=== PATIENT | female | born 1965 | race Caucasian/White ===

== ENCOUNTER 2017-01-14 12:31 | Observation (INO) | payer OTHER ==
[2017-01-14 13:01] LABS: ABSOLUTE LYMPHOCYTES (AUTO) 0.9 10^3/uL (0.5-4.7); ABSOLUTE MONOCYTES (AUTO) 0.2 10^3/uL (0.1-1.4); ABSOLUTE NEUT (AUTO) 5.6 10^3/uL (1.7-8.2); BASOPHILS % (AUTO) 0.3 % (0-2); EOSINOPHILS % (AUTO) 0.7 % (0-6); HEMATOCRIT 43.3 % (36.0-47.0); HEMOGLOBIN 14.4 g/dL (12.0-15.5); HGB HCT DIFFERENCE -0.1; LYMPHOCYTES % (AUTO) 13.4 % (13-45); MEAN CORPUSCULAR HEMOGLOBIN 29.9 pg (27.0-33.4); MEAN CORPUSCULAR HGB CONC 33.2 g/dL (32.0-36.0); MEAN CORPUSCULAR VOLUME 90 fl (80-97); MONOCYTES % (AUTO) 2.4 % (3-13); RED CELL DISTRIBUTION WIDTH 13.7 % (11.5-14.0); SEGMENTED NEUTROPHILS % (AUTO) 83.2 % (42-78); WHITE BLOOD COUNT 6.7 10^3/uL (4.0-10.5)
[2017-01-14 13:11] LABS: PROTHROMBIN TIME 12.9 SEC (11.4-15.4)
[2017-01-14 13:12] LABS: PARTIAL THROMBOPLASTIN TIME 30.8 SEC (23.5-35.8)
[2017-01-14 13:20] LABS: ALANINE AMINOTRANSFERASE 44 U/L (9-52); ALBUMIN 4.5 g/dL (3.5-5.0); ALKALINE PHOSPHATASE 97 U/L (38-126); ANION GAP 13 (5-19); ASPARTATE AMINO TRANSFERASE 31 U/L (14-36); BILIRUBIN,TOTAL 0.7 mg/dL (0.2-1.3); BLOOD UREA NITROGEN 11 mg/dL (7-20); CALCIUM 10.1 mg/dL (8.4-10.2); CARBON DIOXIDE 25 mmol/L (22-30); CHLORIDE 103 mmol/L (98-107); CREATINE KINASE 46 U/L (30-135); CREATININE RESULT 0.58 mg/dL (0.52-1.25); GLUCOSE 160 mg/dL (75-110); POTASSIUM 4.6 mmol/L (3.6-5.0); SODIUM 140.5 mmol/L (137-145); TOTAL PROTEIN 7.4 g/dL (6.3-8.2)
[2017-01-14] MEDS ORDERED: NORMAL SALINE 1000 ML 1,000 ML IV ONE (13:24)
--- NOTE | 2017-01-14 13:29 | ER Document Report ---
ED General - General Chief Complaint: Probable Seizure Stated Complaint: POSSIBLE STROKE Mode of Arrival: Medic Information source: Patient, Relative, Emergency Med Personnel Notes: This is a 51-year-old female with a history of depression and hypertension who presents to the emergency department via EMS after a probable seizure. Patient is alert and conversant upon arrival however most of the history is obtained from her as she is somewhat amnestic of the events. Patient has been states that she was in her normal state of health this morning but laid down for a nap in the late morning. At about 11:30 he was awakened by her abnormal breathing which she describes as a gasping for air. He states that her eyes rolled back in her head and she began drooling and shaking all over and he was unable to get her to respond. This episode lasted 10-15 minutes per the . EMS was called and patient was awake and responsive at the time of their arrival. She was noted to have loss of bladder control during the episode. Of note she has no prior history of seizure. She was treated for bronchitis about 2 weeks ago but for the past week has been feeling well. EMS reports that enroute to the ER, pt had a brief episode of expressive aphasia associated with R facial droop. This lasted only a few minutes, and had completely resolved upon arrival to the ER. - Related Data Allergies/Adverse Reactions: No Known Allergies Allergy (Unverified 01/14/17 14:47) Past Medical History - General Information source: Patient, Relative - Social History Smoking Status: Never Smoker Family History: Reviewed & Not Pertinent - Past Medical History Cardiac Medical History: Reports: Hx Hypertension Psychiatric Medical History: Reports: Hx Depression Past Surgical History: Reports: Hx Cholecystectomy, Hx Gastric Bypass Surgery Review of Systems - Review of Systems Notes: REVIEW OF SYSTEMS: CONSTITUTIONAL : Denies fever, chills, or sweats. Denies recent illness. EENT: Denies eye, ear, throat, or mouth pain or symptoms. Denies nasal or sinus congestion. CARDIOVASCULAR: Denies chest pain. RESPIRATORY: Denies cough, cold, or chest congestion. Denies shortness of breath, difficulty breathing, or wheezing. GASTROINTESTINAL: Denies abdominal pain. Denies nausea, vomiting, or diarrhea. GENITOURINARY: Denies difficulty urinating, painful urination, burning, frequency, or blood in urine. MUSCULOSKELETAL: myaglias now, sore all over after the seizure episode SKIN: Denies rash or skin lesions. HEMATOLOGIC : Denies easy bruising or bleeding. LYMPHATIC: Denies swollen, enlarged glands. NEUROLOGICAL: as per HPI PSYCHIATRIC: Denies anxiety or stress or depression. ALL OTHER SYSTEMS REVIEWED AND NEGATIVE. Physical Exam - Vital signs Vitals: Pulse Ox 95 01/14/17 12:44 - Notes Notes: PHYSICAL EXAMINATION: GENERAL: Obese female, alert and conversant although appears tired and somewhat uncomfortable, cooperative with interview and no acute distress HEAD: Atraumatic, normocephalic. EYES: Pupils equal round and reactive to light, extraocular movements intact, sclera anicteric, conjunctiva are normal. ENT: nares patent, oropharynx clear without exudates. Moist mucous membranes. NECK: Normal range of motion, supple without lymphadenopathy LUNGS: Breath sounds clear to auscultation bilaterally and equal. No wheezes rales or rhonchi. HEART: Regular rate and rhythm without murmurs ABDOMEN: Obese, Soft, nontender, normoactive bowel sounds. No guarding, no rebound. No masses appreciated. EXTREMITIES: Normal range of motion, no pitting or edema. NEUROLOGICAL: Cranial nerves grossly intact. Normal speech. Sensation intact bilateral upper and lower extremities. Motor strength 5/5 and symmetric bilateral upper and lower extremities. Finger to nose intact PSYCH: Normal mood, flat affect. SKIN: Warm, Dry, normal turgor, no rashes or lesions noted. Course - Re-evaluation Re-evalutation: 01/14/17 16:20 Discuss[facility] case [facility] Corrie Dinh. At this point she recommends checking a magnesium level and possible observation with MRI and then refer her to neurology based on the result. 01/14/17 16:[address] Scott for admission - Vital Signs Vital signs: Temp Pulse Resp BP Pulse Ox 98.3 F 60 11 L 135/76 H 98 01/14/17 17:36 01/14/17 15:30 01/14/17 17:01 01/14/17 17:01 01/14/17 17:01 - Laboratory Result Diagrams: 01/14/17 12:51 01/14/17 12:51 Laboratory results interpreted by me: 01/14/17 01/14/17 01/14/17 12:51 12:51 12:51 Seg Neutrophils % 83.2 H Monocytes % 2.4 L Glucose 160 H Urine Ketones Urine Ascorbic Acid Salicylates < 1.0 L Acetaminophen < 10 L 01/14/17 14:10 Seg Neutrophils % Monocytes % Glucose Urine Ketones TRACE H Urine Ascorbic Acid 40 H Salicylates Acetaminophen Discharge - Discharge Clinical Impression: New onset seizure Condition: Stable Disposition: ADMITTED OBSERVATION Admitting Provider: Jeannineist Caro Scott Unit Admitted: [facility]
[2017-01-14 13:32] LABS: CREATINE KINASE MB 0.53 ng/mL (<4.55)
[2017-01-14 13:33] LABS: TROPONIN I < 0.012 ng/mL
[2017-01-14 14:10] LABS: ALCOHOL < 10 mg/dL (NONE DETECTED)
[2017-01-14 14:33] LABS: APPEARANCE,URINE CLEAR; BILIRUBIN,URINE NEGATIVE (NEGATIVE); GLUCOSE, URINE NEGATIVE (NEGATIVE); KETONES,URINE TRACE mg/dL (NEGATIVE); LEUKOCYTE ESTERASE,URINE NEGATIVE (NEGATIVE); NITRITE,URINE NEGATIVE (NEGATIVE); PROTEIN,URINE NEGATIVE (NEGATIVE); URINE SPECIFIC GRAVITY 1.012; UROBILINOGEN,URINE NEGATIVE mg/dL (<2.0)
[2017-01-14 14:45] LABS: URINE BARBITURATES SCREEN NEGATIVE; URINE METHADONE SCREEN NEGATIVE; URINE OPIATES LOW NEGATIVE; URINE PHENCYCLIDINE SCREEN NEGATIVE
--- NOTE | 2017-01-14 16:07 | EKG REPORT ---
SEVERITY:- NORMAL ECG - SINUS RHYTHM : Confirmed by: Nathaniel Tariq MD 14-Jan-2017 16:07:29
[2017-01-14] MEDS ORDERED: ALBUTEROL SULFATE 0.083% NEB 2.5 MG/3 ML AMPUL NEB PRN (17:16)
[2017-01-14] MEDS ORDERED: ACETAMINOPHEN 325 MG TABLET PO PRN (17:16)
--- NOTE | 2017-01-14 17:45 | PDOC H&P ---
History of Present Illness Admission Date/PCP: BARRETT BOWIE Patient complains of: Possible seizure activity History of Present Illness: LUIS ALBERTO FELDMAN is a 51 year old female who has no history of seizures to lay down this morning around 11 AM the bed with her and he noticed that she was making a gasping noise in her eyes rolled back in her head and she was having tonic-clonic movement. Patient did have urinary incontinence. This lasted approximately 10 minutes and resolved on its own. The patient was difficult to arouse and has what sounds like a postictal state. called EMS when they arrived she was just starting to wake up. She reports that this is the first and she remembers. In route from the house to the hospital with EMS she had an episode of expressive aphasia and some possible right facial droop. This did resolve the time she presented emergency room. The patient does have a history of sleep apnea but has not been using her CPAP after losing 100 pounds because of gastric bypass surgery in the last year. Patient denies headache today but she denies having any fevers or chills. She denies any visual loss. Denies any odynophagia or dysphagia. She denies any further expressive aphasia. She denies any focal weakness or sensory changes. She does complain of generalized pain however. Patient is on Wellbutrin and has been compliant with medications. She does not drink alcohol or use any other illicit substances. Past Medical History Cardiac Medical History: Reports: Hypertension Pulmonary Medical History: Reports: Sleep Apnea EENT Medical History: Reports: None Neurological Medical History: Reports: None Endocrine Medical History: Reports: None Renal/ Medical History: Reports: None Malignancy Medical History: Reports: None GI Medical History: Reports: None Psychiatric Medical History: Reports: Depression Hematology: Reports: None Infectious Medical History: Reports: None Past Surgical History Past Surgical History: Reports: Cholecystectomy, Gastric Bypass Surgery Social History Information Source: Patient Lives with: Spouse/Significant other Smoking Status: Never Smoker Frequency of Alcohol Use: None Hx Recreational Drug Use: No Drugs: None - Advance Directive Resuscitation Status: Full Code Surrogate healthcare decision maker:: Family History Family History: Mother is in her 70s is still alive. She has hypertension, diabetes, coronary artery disease. Father at age 53 from coronary artery disease. Parental Family History Reviewed: Yes Children Family History Reviewed: No Sibling(s) Family History Reviewed.: No Medication/Allergy Allergies/Adverse Reactions: No Known Allergies Allergy (Unverified 01/14/17 14:47) Review of Systems Constitutional: PRESENT: weight loss - Overall 100 pounds since her gastric bypass surgery. ABSENT: chills, fever(s), headache(s) Eyes: ABSENT: visual disturbances Ears: ABSENT: hearing changes Cardiovascular: ABSENT: chest pain, dyspnea on exertion, edema, orthropnea, palpitations Respiratory: ABSENT: cough, hemoptysis Gastrointestinal: ABSENT: abdominal pain, constipation, diarrhea, hematemesis, hematochezia, nausea, vomiting Genitourinary: PRESENT: other - Had urinary incontinence during her seizure Musculoskeletal: PRESENT: other - Diffuse arthralgias Integumentary: ABSENT: rash, wounds Neurological: PRESENT: as per HPI Psychiatric: PRESENT: depression Endocrine: ABSENT: cold intolerance, heat intolerance, polydipsia, polyuria Hematologic/Lymphatic: ABSENT: easy bleeding, easy bruising Physical Exam Vital Signs: Temp Pulse Resp BP Pulse Ox 60 10 L 130/73 H 98 01/14/17 15:30 01/14/17 15:30 01/14/17 15:30 01/14/17 15:30 General appearance: PRESENT: no acute distress, obese Head exam: PRESENT: atraumatic, normocephalic Eye exam: PRESENT: conjunctiva pink, EOMI, PERRLA. ABSENT: scleral icterus Ear exam: PRESENT: normal external ear exam Neck exam: ABSENT: carotid bruit, JVD, lymphadenopathy, thyromegaly Respiratory exam: PRESENT: clear to auscultation hubert. ABSENT: rales, rhonchi, wheezes Cardiovascular exam: PRESENT: RRR. ABSENT: diastolic murmur, rubs, systolic murmur Pulses: PRESENT: normal dorsalis pedis pul Vascular exam: PRESENT: normal capillary refill GI/Abdominal exam: PRESENT: normal bowel sounds, soft. ABSENT: distended, guarding, mass, organolmegaly, rebound, tenderness Rectal exam: PRESENT: deferred Extremities exam: ABSENT: calf tenderness, clubbing, pedal edema Neurological exam: PRESENT: alert, awake, oriented to person, oriented to place , oriented to time, oriented to situation, CN II-XII grossly intact. ABSENT: motor sensory deficit Psychiatric exam: PRESENT: appropriate affect Skin exam: PRESENT: dry, intact, warm. ABSENT: cyanosis, rash Results Laboratory Results: 01/14/17 12:51 01/14/17 12:51 01/14/17 01/14/17 01/14/17 12:51 12:51 12:51 WBC 6.7 RBC 4.80 Hgb 14.4 Hct 43.3 MCV 90 MCH 29.9 MCHC 33.2 RDW 13.7 Plt Count 315 Seg Neutrophils % 83.2 H Lymphocytes % 13.4 Monocytes % 2.4 L Eosinophils % 0.7 Basophils % 0.3 Absolute Neutrophils 5.6 Absolute Lymphocytes 0.9 Absolute Monocytes 0.2 Absolute Eosinophils 0.0 Absolute Basophils 0.0 Sodium 140.5 Potassium 4.6 Chloride 103 Carbon Dioxide 25 Anion Gap 13 BUN 11 Creatinine 0.58 Est GFR ( Amer) > 60 Est GFR (Non-Af Amer) > 60 Glucose 160 H Calcium 10.1 Magnesium 1.9 Total Bilirubin 0.7 AST 31 ALT 44 Alkaline Phosphatase 97 Total Protein 7.4 Albumin 4.5 Urine Color Urine Appearance Urine pH Ur Specific [place] Urine Protein Urine Glucose (UA) Urine Ketones Urine Blood Urine Nitrite Ur Leukocyte Esterase Urine WBC (Auto) Urine RBC (Auto) 01/14/17 14:10 WBC RBC Hgb Hct MCV MCH MCHC RDW Plt Count Seg Neutrophils % Lymphocytes % Monocytes % Eosinophils % Basophils % Absolute Neutrophils Absolute Lymphocytes Absolute Monocytes Absolute Eosinophils Absolute Basophils Sodium Potassium Chloride Carbon Dioxide Anion Gap BUN Creatinine Est GFR ( Amer) Est GFR (Non-Af Amer) Glucose Calcium Magnesium Total Bilirubin AST ALT Alkaline Phosphatase Total Protein Albumin Urine Color YELLOW Urine Appearance CLEAR Urine pH 5.0 Ur Specific [place] 1.012 Urine Protein NEGATIVE Urine Glucose (UA) NEGATIVE Urine Ketones TRACE H Urine Blood NEGATIVE Urine Nitrite NEGATIVE Ur Leukocyte Esterase NEGATIVE Urine WBC (Auto) 3 Urine RBC (Auto) 0 01/14/17 01/14/17 12:51 12:51 Creatine Kinase 46 CK-MB (CK-2) 0.53 Troponin I < 0.012 Impressions: Chest X-Ray 01/14/17 12:33 IMPRESSION: NO ACUTE RADIOGRAPHIC FINDING IN THE CHEST. Head CT 01/14/17 14:32 IMPRESSION: NORMAL BRAIN CT WITH CONTRAST. Assessment & Plan - Diagnosis (1) New onset seizure Is this a current diagnosis for this admission?: YesPlan: Patient had a tonic-clonic episode along with a postictal state and urinary incontinence. This most likely was a seizure. The cause of the seizures unclear. She does not have any type of substance abuse and no recent trauma. There is no evidence for any type of infectious causes. The patient does have sleep apnea and did have some snoring prior to this occurring and this could possibly be a contributing factor. She had a head CT that was unremarkable and we will obtain MRI. We'll hold off on starting any antiepileptics unless she has another seizure. Patient did have some question of facial droop and expressive aphasia. This most likely represented Luis's paralysis however we will check an MRI to make certain that there is not an acute event and treat with aspirin just to make certain in case this could represent a TIA although my suspicion is that this is not the case. She had been on bupropion prior to this event and we will hold that for now. (2) Sleep apnea Is this a current diagnosis for this admission?: YesPlan: She has not been using her CPAP since her surgery and weight loss. Will write for her to use his CPAP at night if need be. (3) Hypertension Is this a current diagnosis for this admission?: YesPlan: Continue with lisinopril. (4) Depression Is this a current diagnosis for this admission?: YesPlan: Continue with Lexapro and hold the bupropion given the new seizure. - Time Time Spent: 50 to 70 Minutes - Plan Summary Plan Summary: We'll admit as an observation as I anticipate this will require less than a 2 midnight hospital stay.
[2017-01-14] MEDS: KETOROLAC TROMETHAMINE INJ/PF 30 MG/1 ML SDV IV SCH ×2 (17:46→22:59)
[2017-01-15] MEDS: KETOROLAC TROMETHAMINE INJ/PF 30 MG/1 ML SDV IV SCH (05:31)
[2017-01-15 07:02] LABS: ANION GAP 11 (5-19); BLOOD UREA NITROGEN 12 mg/dL (7-20); CALCIUM 9.5 mg/dL (8.4-10.2); CARBON DIOXIDE 26 mmol/L (22-30); CHLORIDE 103 mmol/L (98-107); CREATININE RESULT 0.65 mg/dL (0.52-1.25); GLUCOSE 92 mg/dL (75-110); MAGNESIUM 1.9 mg/dL (1.6-2.3); POTASSIUM 4.4 mmol/L (3.6-5.0); SODIUM 139.9 mmol/L (137-145)
[2017-01-15 07:55] LABS: HEMATOCRIT 35.8 % (36.0-47.0); HGB HCT DIFFERENCE 0.2; MEAN CORPUSCULAR HGB CONC 33.4 g/dL (32.0-36.0); MEAN CORPUSCULAR VOLUME 90 fl (80-97); RED BLOOD COUNT 3.99 10^6/uL (3.72-5.28); RED CELL DISTRIBUTION WIDTH 13.5 % (11.5-14.0); WHITE BLOOD COUNT 9.2 10^3/uL (4.0-10.5)
[2017-01-15 09:05] VITALS: BP 118/55
[2017-01-15] MEDS ORDERED: INFLUENZA ADLT QUAD (36MOS+) 2016-17 VAC 0.5 ML SYR IM PRN (09:42)
--- NOTE | 2017-01-15 09:47 | PDOC DISCHARGE SUMMARY ---
General - Admit/Disc Date/PCP Admission Date/Primary Care Provider: 01/14/17 17:16 BARRETT BOWIE Discharge Date: 01/15/17 - Discharge Diagnosis (1) New onset seizure Is this a current diagnosis for this admission?: YesSummary: The etiology is uncertain. She had a normal MRI. The patient has been on bupropion which has been stopped. She did have an episode of hypoxia when she did not have her CPAP on and was sleeping. (2) Sleep apnea Is this a current diagnosis for this admission?: YesSummary: The patient has not been wearing this because she's had significant amount of weight loss. She did have an episode of hypoxia while she was sleeping and not wearing oxygen or CPAP. She is instructed to continue her CPAP until her physician advises her otherwise. (3) Hypertension Is this a current diagnosis for this admission?: Yes (4) Depression Is this a current diagnosis for this admission?: Yes - Additional Information Resuscitation Status: Full Code Discharge Diet: Regular Discharge Activity: Activity As Tolerated Home Medications: Aspirin [Ecotrin 81 mg EC Tablet] 81 mg PO DAILY tabec 01/15/17 Diclofenac Sodium/Misoprostol [Diclofenac-Misoprost 75-0.2 Tb] 1 each PO BID 04/28 Escitalopram Oxalate [Lexapro 10 mg Tablet] 10 mg PO DAILY 01/15/17 Hydroxyzine HCl [Atarax 25 mg Tablet] 1 tab PO DAILY 01/15/17 Lisinopril [Prinivil] 20 mg PO DAILY 01/15/17 Magnesium Oxide [Mag-Ox 400 mg Tablet] 400 mg PO DAILY 01/15/17 Multivit-Min/Iron Fum/Folic AC [Sifbm-Bffefqj-Ioxhlepm Tablet] 1 each PO BID 04/28 Pantoprazole Sodium [Protonix] 40 mg PO DAILY 01/15/17 Vitamin D3/Vitamin K2 (Mk4) [K2 Plus D3 Tablet] 1 each PO DAILY 01/15/17 History of Present Illness History of Present Illness: LUIS ALBERTO FELDMAN is a 51 year old female who has no history of seizures to lay down this morning around 11 AM the bed with her and he noticed that she was making a gasping noise in her eyes rolled back in her head and she was having tonic-clonic movement. Patient did have urinary incontinence. This lasted approximately 10 minutes and resolved on its own. The patient was difficult to arouse and has what sounds like a postictal state. called EMS when they arrived she was just starting to wake up. She reports that this is the first and she remembers. In route from the house to the hospital with EMS she had an episode of expressive aphasia and some possible right facial droop. This did resolve the time she presented emergency room. The patient does have a history of sleep apnea but has not been using her CPAP after losing 100 pounds because of gastric bypass surgery in the last year. Patient denies headache today but she denies having any fevers or chills. She denies any visual loss. Denies any odynophagia or dysphagia. She denies any further expressive aphasia. She denies any focal weakness or sensory changes. She does complain of generalized pain however. Patient is on Wellbutrin and has been compliant with medications. She does not drink alcohol or use any other illicit substances. Hospital Course Hospital Course: 51-year-old female who presented with new onset seizure. The patient was sleeping when this happened and she was not wearing her CPAP because she has lost a good bit of weight. The patient was monitored and had no further episodes of seizures. There is concerned because she had some questionable facial droop that this may represent a TIA however the brain MRI was unremarkable. She was started on aspirin empirically. Patient had been on bupropion which has been stopped. We will discharge home and have her follow- up with her primary care and have them refer her to the neurologist of their choice to see whether she needs any further workup. She did not have a EEG while hospitalized. The patient was not started on any medication for seizure since this was her first episode. She was instructed not to drive any vehicles until given the okay by her neurologist. Physical Exam Vital Signs: Temp Pulse Resp BP Pulse Ox 98.3 F 77 18 118/55 L 95 01/15/17 08:37 01/15/17 08:37 01/15/17 08:37 01/15/17 08:37 01/15/17 08:37 Intake & Output 01/14/17 01/15/17 01/16/17 06:59 06:59 06:59 Intake Total 277 Balance 277 Weight 155.3 kg General appearance: PRESENT: no acute distress Eye exam: PRESENT: conjunctiva pink. ABSENT: scleral icterus Mouth exam: PRESENT: moist, tongue midline Neck exam: ABSENT: JVD Respiratory exam: PRESENT: clear to auscultation hubert. ABSENT: rales, rhonchi, wheezes Cardiovascular exam: PRESENT: RRR. ABSENT: diastolic murmur, rubs, systolic murmur GI/Abdominal exam: PRESENT: normal bowel sounds, soft. ABSENT: distended, guarding, mass, organolmegaly, rebound, tenderness Extremities exam: ABSENT: calf tenderness, clubbing, pedal edema Neurological exam: PRESENT: alert, awake, oriented to person, oriented to place , oriented to time, oriented to situation, CN II-XII grossly intact. ABSENT: motor sensory deficit Skin exam: PRESENT: dry, intact, warm. ABSENT: cyanosis, rash Results Laboratory Results: 01/15/17 06:22 01/15/17 06:22 01/15/17 01/15/17 06:22 06:22 WBC 9.2 RBC 3.99 Hgb 12.0 D Hct 35.8 L MCV 90 MCH 30.0 MCHC 33.4 RDW 13.5 Plt Count 277 Sodium 139.9 Potassium 4.4 Chloride 103 Carbon Dioxide 26 Anion Gap 11 BUN 12 Creatinine 0.65 Est GFR ( Amer) > 60 Est GFR (Non-Af Amer) > 60 Glucose 92 Calcium 9.5 Magnesium 1.9 Impressions: Head MRI 01/14/17 00:00 IMPRESSION: Age-appropriate exam. Chest X-Ray 01/14/17 12:33 IMPRESSION: NO ACUTE RADIOGRAPHIC FINDING IN THE CHEST. Head CT 01/14/17 14:32 IMPRESSION: NORMAL BRAIN CT WITH CONTRAST. Qualifiers PATEINT BEING DISCHARGED WITH ANY OF THE FOLLOWING DIAGNOSIS?: No Plan Discharge Plan: She is discharged home with follow-up with her primary care Krista HYDE in 1 week. Will defer referral to neurology to her primary care. Patient was instructed not to drive until she follows up with neurology. Time Spent: Less than 30 Minutes
[2017-01-15] MEDS ORDERED: HYDROXYZINE HCL 10 MG TABLET PO SCH (10:00)
[2017-01-15] MEDS ORDERED: ESCITALOPRAM OXALATE 10 MG TABLET PO SCH (10:00)
[2017-01-15] MEDS ORDERED: LISINOPRIL 10 MG TABLET PO SCH (10:00)
[2017-01-15] MEDS ORDERED: ASPIRIN 81 MG TABLET, ENT COATED PO SCH (10:00)
== END 2017-01-15 10:30 | disposition home or self-care (01) ==
LOC: ER 12:31 → EH 17:16 → 3S 19:03
PROVIDERS: ADMIT Internal Medicine; ATTEND Internal Medicine
DX: R56.9 Unspecified convulsions (principal); G47.30 Sleep apnea, unspecified; I10 Essential (primary) hypertension; F32.9 Major depressive disorder, single episode, unspecified; Z98.84 Bariatric surgery status
CPT/HCPCS: 93005; 99285; 96361; 51701; 96374; 36415 ×2; 82553; 80307 ×4; 82550; 83735 ×2; 85025; 85027; 85610; 85730; 80048; 80053; 81001; 84484; 70551; 71010; 70450; 70460; 90686; 93010; 94660; J1885 ×2; J3490 ×2; J7030; G0378